=== PATIENT | female | born 1965 | race Caucasian/White ===

== ENCOUNTER 2018-02-25 11:37 | Emergency (ER) | payer OTHER ==
[~2018-02-25] VITALS: Ht 157.5 cm; Wt 83.6 kg
[~2018-02-25 11:37] MED LIST: CARAFATE100 MG/ML PO; MOTRIN IB200 MG PO; RANITIDINE HCL150 M1 PO; SEROQUEL400 MG PO; TIZANIDINE HCL4 MG PO; TYLENOL EXTRA500 M1 PO; ZITHROMAX250 MG PO; ZOFRAN4 MG PO
[2018-02-25] MEDS ORDERED: PEN-VEE K,VEET500 MG PO (12:18)
[2018-02-25 12:28] VITALS: BP 138/93
== END 2018-02-25 12:28 | disposition home or self-care (01) ==
LOC: EME 11:37
DX: K02.9 Dental caries, unspecified (principal); F17.200 Nicotine dependence, unspecified, uncomplicated; Z88.0 Allergy status to penicillin; Z88.5 Allergy status to narcotic agent; Z88.8 Allergy status to other drugs, medicaments and biological substances
CPT/HCPCS: 99281; 99283

== ENCOUNTER 2018-05-15 16:37 | Emergency (ER) | payer OTHER ==
[~2018-05-15] VITALS: Ht 157.5 cm; Wt 80.7 kg
[~2018-05-15 16:37] MED LIST changes: +PEN-VEE K,VEET500 MG PO
[2018-05-15] MEDS ORDERED: KEFLEX500 MG PO (18:45)
[2018-05-15 18:56] VITALS: BP 121/77
== END 2018-05-15 18:56 | disposition home or self-care (01) ==
LOC: EME 16:37
PROC: 0H98XZZ Drainage of Buttock Skin, External Approach (ICD-10-PCS; principal; 2018-05-15)
DX: L02.31 Cutaneous abscess of buttock (principal); G89.29 Other chronic pain; F31.9 Bipolar disorder, unspecified; Z88.0 Allergy status to penicillin; Z88.5 Allergy status to narcotic agent; Z91.013 Allergy to seafood; F17.200 Nicotine dependence, unspecified, uncomplicated
CPT/HCPCS: 99281; 99283